=== PATIENT | female | born 1970 | race Caucasian/White ===

== ENCOUNTER 2019-08-28 08:32 | Outpatient (CLI) | payer BC, SELFPAY ==
--- NOTE | ~2019-08-28 | MM_ITS ---
EXAMINATION: MM screening [facility] BI w hedy HISTORY: Screening mammogram TECHNIQUE: Craniocaudal and mediolateral oblique 3-D tomosynthesis images were obtained and synthetic 2-D images were generated. CAD analysis was submitted and interpreted. COMPARISON: 07/20/2018, 02/23/2015 BREAST PARENCHYMAL COMPOSITION: There are scattered areas of fibroglandular density. FINDINGS: There is no evidence of suspicious mass, calcification, or architectural distortion to sugg est malignancy in either breast. There has been no suspicious interval change. IMPRESSION: 1. No mammographic evidence of malignancy. 2. Recommend routine screening mammography in one year. BI-RADS Category 1: Negative Reviewed, dictated and finalized at location A.
== END 2019-08-28 08:33 | disposition home or self-care (01) ==
LOC: ANHIMG 08:35
PROVIDERS: Visit Provider Obstetrics & Gynecology
DX: Z12.31 Encounter for screening mammogram for malignant neoplasm of breast (principal)
CPT/HCPCS: 77063; 77067

== ENCOUNTER 2019-11-27 00:10 | Outpatient (CLI) | payer BC, SELFPAY ==
[2019-11-27 15:58] LABS: SARS-CoV-2 RNA PCR Negative
== END 2019-11-27 00:11 | disposition home or self-care (01) ==
LOC: ANHCOVIDDT 00:10
PROVIDERS: Visit Provider Obstetrics & Gynecology
DX: Z01.818 Encounter for other preprocedural examination (principal); Z11.59 Encounter for screening for other viral diseases
CPT/HCPCS: 87635; C9803; U0003

== ENCOUNTER 2019-11-29 00:39 | Day surgery (SDC) | payer BC, SELFPAY ==
[2019-11-16 16:41] VITALS: BMI 36.0
[2019-11-29 06:20] VITALS: BP 124/78; PULSE 96; RESP 18; TEMP 36.2; O2SAT 97; BMI 36.7
[2019-11-29] MEDS: LACTATED RINGERS 1,000 ML 30 ML IV CONT (06:30)
--- NOTE | 2019-11-29 06:51 | WPDANESEPPF ---
Anes - Initial Pre Proc Eval Procedure: Operation Date: 11/29/19 07:30 Proposed Procedures p Hysteroscopy, Dilation and Curettage, Estephanie Ablation, Myosure with Endometrial Polyp Removal - Logan Pacheco MD Date/Time: 11/29/19 06:51 Surgeon: Logan Pacheco MD Pre Op Diagnosis: menorrhaghia, endometrial polyp Patient Data Age: 49 Gender: F Height: 5 ft 7 in Weight: 106.4 kg Last Vital Signs Temp 36.2 C L 11/29/19 06:20 Pulse 96 11/29/19 06:20 Resp 18 11/29/19 06:20 BP 124/78 11/29/19 06:20 Pulse Ox 97 11/29/19 06:20 Allergies Allergy/AdvReac Type Severity Reaction Status Date / Time No Known Allergies Allergy Unknown Uncoded 11/29/19 06:39 Home Medications Medication Instructions Recorded Confirmed Type cholecalciferol (vitamin D3) 100 4,000 unit PO DAILY 08/21/19 11/29/19 History mcg (4,000 unit) capsule melatonin 5 mg capsule 5 mg PO HS 08/21/19 11/29/19 History multivitamin 1 tablet PO DAILY 11/16/19 11/29/19 History Patient hx anesthesia problems: none Family hx anesthesia problems: none PMFSH Past Medical History Medical History Endometrial polyp Irregular periods Menorrhagia Surgical History Surgical History History of cholecystectomy Previous section x 2 Family History Family History Father Hypertension Family history of type 2 diabetes mellitus Social History Social History Smoking status: Never smoker Second hand tobacco smoke exposure: No Alcohol intake: current Anes - Eval Final PreProcedure Day of Procedure 11/29/19 06:51 Patient weight: obese Heart: regular rate and rhythm Lungs: clear to auscultation Airway: Mallampati scale class II Neurological: alert and oriented Last oral intake: >/= 8 hours ASA classification: II Emergent: no Anesthetic plan: proceed Anesthesia type and monitoring: general GIVS and standard monitoring Informed Consent: The patient's anesthetic plan and its attendant risks and benefits were discussed with the patient/family/POA. Questions were solicited and answers provided to the satisfaction of the patient/family/POA.
--- NOTE | 2019-11-29 07:04 | PM.IMHP ---
H&P: HPI History of Present Illness Chief complaint: menorrhaghia, endometrial polyp Narrative: Humera Garcia is a 49 year old female with history of menometrorrhagia. Vasectomy for control. She had an endometrial biopsy which showed an endometrial polyp. She was recommended to remove this. She was given option of endometrial ablation and desires endometrial ablation. Review of Systems Review of Systems: All systems reviewed & are unremarkable except as noted in HPI and below Constitutional: Constitutional: Reports no additional constitutional complaints ENT: Reports Normal hearing present Cardiovascular: Cardiovascular: Denies chest pain and Denies dyspnea Respiratory: Respiratory: Reports no additional respiratory complaints, Reports cough, Denies dyspnea and Reports other Gastrointestinal: Gastrointestinal: Denies abdominal pain Genitourinary: Genitourinary: Reports no additional female genitourinary complaints, Reports as per HPI, Denies dyspareunia, Denies vaginal discharge, Denies vaginal dryness, Denies vaginal odor and Denies vaginal pruritus Neurologic: Reports Normal hearing present Psychiatric: Psychiatric: Reports no additional psychiatric complaints Endocrine: Endocrine: Reports no additional endocrine complaints Hematologic/Lymphatic: Hematologic/Lymphatic: Reports no additional hematologic/lymphatic complaints [facility] Past Medical History Medical History Endometrial polyp Irregular periods Menorrhagia Surgical History Surgical History History of cholecystectomy Previous section x 2 Family History Family History Father Hypertension Family history of type 2 diabetes mellitus Social History Social History Smoking status: Never smoker Second hand tobacco smoke exposure: No Alcohol intake: current Meds Home Medications and Allergies Home Medications Medication Instructions Recorded Confirmed Type cholecalciferol (vitamin D3) 100 4,000 unit PO DAILY 08/21/19 11/29/19 History mcg (4,000 unit) capsule melatonin 5 mg capsule 5 mg PO HS 08/21/19 11/29/19 History multivitamin 1 tablet PO DAILY 11/16/19 11/29/19 History Allergies Allergy/AdvReac Type Severity Reaction Status Date / Time No Known Allergies Allergy Unknown Uncoded 11/29/19 06:39 Vital Signs Vital Signs - 24 hr 11/29/19 06:20 Temperature 97.2 F L Pulse Rate 96 Respiratory Rate 18 Blood Pressure 124/78 Pulse Oximetry 97 Exam Const: General: healthy appearing, no acute distress, alert and awake Nutritional Appearance: well nourished Orientation/consciousness: oriented to person, oriented to place, oriented to time and patient oriented x3 HENMT: Head: normal to inspection Ears: hearing grossly normal bilaterally Eyes: General: appearance normal, both eyes and all related structures Resp: Effort & Inspection: normal respiratory effort and other Auscultation: clear to auscultation bilaterally Cardio: Rate: regular rate Rhythm: regular rhythm GI: Inspection: normal to inspection GI Palp: Yes No hepatosplenomegaly present Rectal Exam: visual inspection normal : External Female Exam: normal external appearance and normal appearance of the urethra Speculum Exam - Vagina: normal appearance of the vagina Speculum Exam - Cervix: normal appearance of the cervix Bimanual exam- vagina & uterus: normal bimanual exam, uterine size normal, bladder normal to palpation, consistency normal, non-tender and no cervical motion tenderness Bimanual Exam- Adnexa, other: no masses, normal and No adnexal tenderness OB/external & speculum: external exam normal Skin: General skin exam: normal color Neuro: General: oriented to person, oriented to place, oriented to time and patient
[2019-11-29] MEDS: ceFAZolin 2 GM/D5W 50 ML 2 GM/50 ML BAG IVPB (07:28)
[2019-11-29] MEDS: KETOROLAC 30 MG/ML VIAL (*BKC) IV PUSH (08:03)
--- NOTE | 2019-11-29 08:12 | PM.PROC ---
Procedure Note - Detailed Date of procedure: 11/29/19 Pre-op diagnosis: menorrhaghia, endometrial polyp Menometrorrhagia. Post-op diagnosis: same Procedure performed: 1. Estephanie endometrial ablation 2. Hysteroscopy and dilation and currettage 3. Myosure excision of endometrial lesion Description of procedure: After informed consent was obtained patient was taken to the operating room and adequate IV sedation was administered. Attention was turned to the vagina. Speculum was inserted. Single-tooth tenaculum placed on the anterior lip of the cervix. 10cc of 1% lidocaine plain was injected at cervicovaginal interface at 2,3,8, 10 oclock. The uterus was sounded to 10 cm. The cervix was dilated to an 8 Kumar dilator. The cervical length was 4cm. The hysteroscope was inserted into the cavity. The findings were a small polyp looking lesion to the left of lower uterine segment. The hysteroscope was removed. The myosure biopsy was inserted and the lesion was removed. A sharp currettage was then performed. The Estephanie ablation instrument was inserted into the cavity. Cavity assessment was performed and a leak at os was noted. A tenaculum was placed at the posterior cervix. The instrument was inserted into cavity and cavity assessment performed and intact. The ablation was enabled. After 120 seconds the Estephanie stopped. The ablation instrument was removed. The hysteroscope was inserted and there was noted to be good eschar with the cavity. The hysteroscope was removed the single-tooth tenaculums were removed and hemostasis was noted at the tenaculum site. Sponge count correct. The patient was taken to recovery in stable condition. Patient tolerated procedure well. Anesthesia: MAC and local Surgeon: Logan Pacheco MD Estimated blood loss (mL): 5 Drains: No Packing: No Pathology: yes (endometrial currettings with myosure shavings) Complications: No immediate complications Condition: stable Disposition: PACU Findings: Uterine cavity sound to 10cm, cervical length 4 cm, small polypoid or remnant of polyp at lower left uterine segment, proliferative endometrium, good eschar noted of lining post procedure.
[2019-11-29 08:16] VITALS: BP 120/73; PULSE 80; RESP 18
--- NOTE | 2019-11-29 08:30 | P.DS_ITS ---
DS: Admitting Diagnosis Admitting Diagnosis Admitting Diagnosis: Menometrorrhagia. Endometrial polyp. DS: Discharge Diagnosis Discharge Diagnosis (1) Menorrhagia: Code(s): N92.0 - Excessive and frequent menstruation with regular cycle Status: Acute Assessment and Plan: Estephanie endometrial ablation performed. Hysteroscopy and dilation and currettage performed. (2) Endometrial polyp: Code(s): N84.0 - Polyp of corpus uteri Status: Acute Assessment and Plan: Myosure excision. DS: Summary Time Spent with Patient Time attestation: Total time spent providing and/or coordinating discharge services: DS: Data Data Completed and Pending Pending studies at discharge: Pending at discharge 11/29/19 07:54 Surgical [PTH] Routine Discharge Plan Discharge Patient Disposition: Home, Self-Care Discharge Instructions: Pelvic rest for two weeks. Call for fever, saturating more than a pad an hour. May have discharge for up to six weeks. May take over the counter Ibuprofen or Tylenol for pain. Follow directions on bottle. Follow-up/Referrals: Logan Pacheco MD [Physician] - 4 Weeks Discharge Medications: No Action melatonin 5 mg capsule 5 mg PO HS RF: 0 cholecalciferol (vitamin D3) 4,000 unit capsule 4,000 unit PO DAILY RF: 0 multivitamin Tablet 1 tablet PO DAILY RF: 0 Primary Care Provider: PHYSICIAN,HELICOPTER DISPATCHER Attending physician on admission: Logan Pacheco
[2019-11-29 08:45] VITALS: BP 120/71; PULSE 76; RESP 12
[2019-11-29 09:15] VITALS: BP 111/68; PULSE 68; RESP 16
== END 2019-11-29 09:31 | disposition home or self-care (01) ==
PROVIDERS: Visit Provider Obstetrics & Gynecology
PROC: 0U5B8ZZ Destruction of Endometrium, Via Natural or Artificial Opening Endoscopic (ICD-10-PCS; CPT 58563; principal; 2019-11-29 07:30)
DX: N92.0 Excessive and frequent menstruation with regular cycle (principal); N84.0 Polyp of corpus uteri; E66.9 Obesity, unspecified; Z68.36 Body mass index [BMI] 36.0-36.9, adult
CPT/HCPCS: 58563; 88305; A9270; J0131; J0690; J1885; J2250; J2704; J7030; J7120

== ENCOUNTER 2020-05-11 08:37 | Emergency (ER) | payer BC, SELFPAY ==
[2020-05-11 08:42] VITALS: BP 134/67; PULSE 85; RESP 12; TEMP 36.3; O2SAT 98
--- NOTE | 2020-05-11 09:01 | ED.EYEPROB ---
HPI - Eye Problem General Chief complaint: Eye Problems Stated complaint: EYE SWELLING Source: patient and RN notes reviewed Limitations: no limitations History of Present Illness HPI Narrative: The patient, who wears contact lenses, presents with left upper lid redness. Patient states she has a shorter 1 to 2-day history of left upper lid redness. No pinkeye, fever, sneezing/wheezing, discharge, photophobia, foreign body. Symptoms are mild, slightly worse with blinking, somewhat more localized to nasal aspect of upper lid Related Data Home Medications Medication Instructions Recorded Confirmed cholecalciferol (vitamin D3) 100 4,000 unit PO DAILY 08/21/19 11/29/19 mcg (4,000 unit) capsule melatonin 5 mg capsule 5 mg PO HS 08/21/19 11/29/19 multivitamin 1 tablet PO DAILY 11/16/19 11/29/19 Allergies Allergy/AdvReac Type Severity Reaction Status Date / Time No Known Allergies Allergy Unknown Uncoded 11/29/19 06:39 Review of Systems Review of Systems: Narrative: General/Constitutional: No weight loss,fever Eyes: REPORTS lid redness,no discharge Ears/Nose/Throat: No: Epistaxis,ear discharge Respiratory: Denies: Hemoptysis Gastrointestinal: No Vomiting, Bleeding-rectal Skin: No Lumps, eruption Neurologic: No Focal Weakness,Sz Hematologic: Denies: Petechiae/Purpura Psychiatric: No: Suicida ideationl All Other Systems: Reviewed and Negative PMFSH Past Medical History Medical History (Updated 05/11/20 @ 09:06 by Williams Montemayor MD) Endometrial polyp Irregular periods Menorrhagia Surgical History Surgical History History of cholecystectomy Previous section x 2 Family History Family History Father Hypertension Family history of type 2 diabetes mellitus Social History Social History Smoking status: Never smoker Second hand tobacco smoke exposure: No Alcohol intake: current Comments At time of signature, agree with nursing past medical, surgical, social and family history. There is no relevant family history pertinent to the presenting complaint Exam Narrative: Exam Narrative: General Appearance: Well appearing, Well nourished, No distress EYE: PERRLA, [id number] : Early/mild left upper lid redness from stye, EOMI , Lens normal, Normal corneas , anterior chamber deep, Conjunctiva injection Ears: External ear normal, Auditory canal normal Nose: Normal nose, Nares clear Mouth/Throat: Normal appearing, Normal lips Supple, Respiratory: Airway patent, No respiratory distress Skin: Warm, Dry Neurological: A&O x3,, Normal affect Course Vital Signs Vital signs: Vital Signs Temperature 97.3 F L 05/11/20 08:42 Pulse Rate 85 05/11/20 08:42 Respiratory Rate 12 05/11/20 08:42 Blood Pressure 134/67 05/11/20 08:42 Pulse Oximetry 98 05/11/20 08:42 Temperature 97.3 F L 05/11/20 08:42 Pulse Rate 85 05/11/20 08:42 Respiratory Rate 12 05/11/20 08:42 Blood Pressure 134/67 05/11/20 08:42 Pulse Oximetry 98 05/11/20 08:42 Discharge Plan Discharge Clinical Impression: Hordeolum externum of left upper eyelid Patient Disposition: Home, Self-Care Condition: Stable Instructions: Navin (ED) Additional Instructions: See eye doctor if not improved, discontinue contact lenses till improved over a week. Also try Ras's no tear [or other brand] shampoo for eyelid scrubs/washing Prescriptions: New sulfamethoxazole-trimethoprim [Bactrim DS] 800-160 mg tablet 1 tablet PO Q12H Qty: 6 RF: 0 sulfacetamide sodium [Bleph-10] 10 % drops 2 drp LEFTEYE Q3H Qty: 5 RF: 0 No Action melatonin 5 mg capsule 5 mg PO HS RF: 0 cholecalciferol (vitamin D3) 4,000 unit capsule 4,000 unit PO DAILY RF: 0 multivitamin Tablet 1 tablet PO DAILY RF: 0
== END 2020-05-11 09:13 | disposition home or self-care (01) ==
PROVIDERS: Emergency Provider Emergency Medicine; PCP Family Medicine
DX: H00.014 Hordeolum externum left upper eyelid (principal)
CPT/HCPCS: 99213; G0463

== ENCOUNTER 2020-11-06 08:51 | Outpatient (CLI) | payer BC, SELFPAY ==
--- NOTE | ~2020-11-06 | MM_ITS ---
EXAMINATION: MM screening [facility] BI w hedy HISTORY: Screening TECHNIQUE: Craniocaudal and mediolateral oblique 3-D tomosynthesis images were obtained and synthetic 2-D images were generated. CAD analysis was submitted and interpreted. COMPARISON: Comparison to multiple prior studies sequentially, with oldest reviewed study dated 10/2014. BREAST PARENCHYMAL COMPOSITION: There are scattered areas of fibroglandular density. FINDINGS: There is no evidence of suspicious mass, calcification, or architectural distortion to sugg est malignancy in either breast. There has been no suspicious interval change. IMPRESSION: 1. No mammographic evidence of malignancy. 2. Recommend routine screening mammography in one year. BI-RADS Category 1: Negative Reviewed, dictated and finalized at location A.
== END 2020-11-06 08:52 | disposition home or self-care (01) ==
LOC: ANHIMG 08:53
PROVIDERS: PCP Family Medicine; Visit Provider Obstetrics & Gynecology
DX: Z12.31 Encounter for screening mammogram for malignant neoplasm of breast (principal)
CPT/HCPCS: 77063; 77067

== ENCOUNTER 2021-12-10 14:47 | Outpatient (CLI) | payer BC, SELFPAY ==
--- NOTE | ~2021-12-10 | MM_ITS ---
EXAMINATION: MM screening [facility] BI w hedy HISTORY: Screening mammogram TECHNIQUE: Craniocaudal and mediolateral oblique 3-D tomosynthesis images were obtained and synthetic 2-D images were generated. CAD analysis was submitted and interpreted. COMPARISON: 11/06/2020, 08/28/2019, 07/20/2018 bilateral screening mammogram examinations BREAST PARENCHYMAL COMPOSITION: FINDINGS: There is no evidence of suspicious mass, calcification, or architectural distortion to sugg est malignancy in either breast. There has been no suspicious interval change. IMPRESSION: 1. No mammographic evidence of malignancy. 2. Recommend routine screening mammography in one year. BI-RADS Category 1: Negative Reviewed, dictated and finalized at location A.
== END 2021-12-10 14:48 | disposition home or self-care (01) ==
PROVIDERS: PCP Family Medicine; Visit Provider Obstetrics & Gynecology
DX: Z12.31 Encounter for screening mammogram for malignant neoplasm of breast (principal)
CPT/HCPCS: 77063; 77067

== ENCOUNTER 2024-09-11 07:23 | Outpatient (CLI) | payer BC, SELFPAY ==
--- NOTE | ~2024-09-11 | MM_ITS ---
EXAMINATION: MM screening yoav BI w hedy HISTORY: Screening TECHNIQUE: Craniocaudal and mediolateral oblique 3-D tomosynthesis images were obtained and synthetic 2-D images were generated. CAD analysis was submitted and interpreted. COMPARISON: 12/10/2021 and dating back to 07/20/2018 BREAST PARENCHYMAL COMPOSITION: There are scattered areas of fibroglandular density. FINDINGS: Interval development of a 7 mm asymmetry within the upper outer left breast approximately 7 cm from the nipple for which spot compression followed by a focused ultrasound is recommended. Otherwise stable parenchymal pattern without suspicious microcalcifications or architectural distorti on. IMPRESSION: Interval development of a 7 mm asymmetry within the upper outer left breast approximately 7 cm from t he nipple for which spot compression followed by a focused ultrasound is recommended. BI-RADS Category 0: Incomplete: Needs additional imaging evaluation. Reviewed, dictated and finalized at location A. IMPRESSION: Interval development of a 7 mm asymmetry within the upper outer left breast nola roximately 7 cm from the nipple for which spot compression followed by a focuse d ultrasound is recommended. BI-RADS Category 0: Incomplete: Needs additional imaging evaluation.
--- OUTSIDE RECORDS SUMMARY | 2024-09-11 07:27 | XMS_ITS | Encounter Summary ---
Author Organization [facility] Address [address] [place] [address] Care Team Providers Care Nut Sorter Operator Name Role Phone Donnell Patterson MD Primary Care Provider [phone] Encounter Details Date Type Department Care Team (Late Contact Info) Description 11/09/2023 MyChart Message Enc [address] [id number] Donnell Patterson MD [address] [place] [address] [place] Social History Tobacco Use Types Packs/Day Years Used Date Smoking Tobacco: Never Passive Smoke Exposure: Never Smokeless Tobacco: Never Comments:Counseled by Dr. Sara vanegas. 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 Gender Identity Female 10/26/2023 7:57 AM CDT Sexual Orientation Straight 10/26/2023 7: 57 AM CDT documented as of this encounter Plan of Treatment Upcoming Encounters Date Type Department Care Team (Late st Contact Info) Description 10/24/2024 7:40 AM CDT Office Visit [address] [place] [address] Donnell Patterson MD [address] [address] documented as of this encounter Visit Diagnoses Not on filedocumented in this encounter Additional Health Concerns Assessment Noted Time PHQ-9 Depression Total Score: 5 10/25/19 24 3:33 PM CDT documented as of this encounter Care Teams Nut Sorter Operator Relationship Specialty Start Date End Date Donnell Patterson MD [address] [address] PCP - General 10/24/23 documented as of this encounter
--- OUTSIDE RECORDS SUMMARY | 2024-09-11 07:27 | XMS_ITS | Encounter Summary ---
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 Gender Identity Female 10/26/2023 7:57 AM CDT Sexual Orientation Straight 10/26/2023 7: 57 AM CDT documented as of this encounter Plan of Treatment Upcoming Encounters Date Type Department Care Team (Late st Contact Info) Description 10/24/2024 7:40 AM CDT Office Visit [address] [place] [address] Donnell Patterson MD [address] [address] documented as of this encounter Visit Diagnoses Not on filedocumented in this encounter Additional Health Concerns Assessment Noted Time PHQ-9 Depression Total Score: 5 10/25/19 24 3:33 PM CDT documented as of this encounter Care Teams Electrical Design Technician Relationship Specialty Start Date End Date Donnell Patterson MD [address] [address] PCP - General 10/24/23 documented as of this encounter
--- OUTSIDE RECORDS SUMMARY | 2024-09-11 07:27 | XMS_ITS | Clinical Summary ---
Author Organization [facility] Address [address] [place] [address] Care Team Providers Care Eyelet Operator Name Role Phone Unavailable Primary Care Provider Unavailabl e Allergies No known active allergies Medications Flowflex COVID-19 Ag Home Test kit FOLLOW INSTRUCTIONS INCLUDED WITH THE PACKAGE. 2 Active Active Problems No known active problems Social History Tobacco Use Types Packs/Day Years Used Date Smoking Tobacco: Never Assessed Comments Unknown Sex and Gender Information Value Date Recorded Sex Assigned at Not on file Legal Sex Female 9:04 PM PDT Gender Identity Not on file Sexual Orientation Not on file Plan of Treatment Health Maintenance Due Date Last Done Comments Periodontal Maintenance 1970 Dental Oral Exam 11/26/2021 05/27/2021, 03/22/2020 Dental X-Ray: Bitewings 11/26/2021 05/27/2021 Scaling and Root Planing 04/05/2022 03/22/2020, 07/2019 Dental X-Ray: Full Mouth 11/12/2023 11/10/2020, 07/2019 Dental X-Ray: Panoramic 05/29/2024 05/28/2021, 02/11 Meningococcal B Vaccine Aged Out No l onger eligible based on patient's age to complete this topic Procedures Procedure Name Priority Date/Time Associated Diagnosis Comments PERIODIC ORAL EVALUATION - ESTABLISHED PATIENT Routine 05/27/2021 5:30 PM GLASS INSTALLER TECHNICIAN LL PERIODONTAL SCALING AND ROOT PLANING - ONE TO THREE TEETH PER QUADRANT Routine 03/22/2020 2:00 AM CDT INTRAORAL - COMPREHENSIVE SERIES OF RADIOGRAPHIC IMAGES Routine 03/22/2020 2:00 AM CDT PANORAMIC RADIOGRAPHIC IMAGE Routine 02/12/2020 2:00 AM CDT from Last 3 Months or Most Recently Relevant to Health Maintenance Insurance [facility]
--- OUTSIDE RECORDS SUMMARY | 2024-09-11 07:27 | XMS_ITS | Encounter Summary ---
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 Gender Identity Female 10/26/2023 7:57 AM CDT Sexual Orientation Straight 10/26/2023 7: 57 AM CDT documented as of this encounter Plan of Treatment Upcoming Encounters Date Type Department Care Team (Late st Contact Info) Description 10/24/2024 7:40 AM CDT Office Visit [address] [place], [place] [phone] Donnell Patterson MD [address] [place] [address] [address] [place] [address] documented as of this encounter Visit Diagnoses Not on filedocumented in this encounter Additional Health Concerns Assessment Noted Time PHQ-9 Depression Total Score: 5 10/25/19 24 3:33 PM CDT documented as of this encounter Care Teams Rivet Flunky Relationship Specialty Start Date End Date Donnell Patterson MD [address] [address] PCP - General 10/24/23 documented as of this encounter
--- OUTSIDE RECORDS SUMMARY | 2024-09-11 07:27 | XMS_ITS | Encounter Summary ---
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 Gender Identity Female 10/26/2023 7:57 AM CDT Sexual Orientation Straight 10/26/2023 7: 57 AM CDT documented as of this encounter Plan of Treatment Upcoming Encounters Date Type Department Care Team (Late st Contact Info) Description 10/24/2024 7:40 AM CDT Office Visit [address] [place], [place] [phone] Donnell Patterson MD [address] [place] [address] 157 [place] [address] documented as of this encounter Visit Diagnoses Not on filedocumented in this encounter Additional Health Concerns Assessment Noted Time PHQ-9 Depression Total Score: 5 10/25/19 24 3:33 PM CDT documented as of this encounter Care Teams Shoe Parts Caser Relationship Specialty Start Date End Date Donnell Patterson MD [address] [address] PCP - General 10/24/23 documented as of this encounter
--- OUTSIDE RECORDS SUMMARY | 2024-09-11 07:27 | XMS_ITS | Clinical Summary ---
Author Organization [facility] Address [address] [place] [address] Care Team Providers Care Concession Manager Name Role Phone Donnell [place] MD Primary Care Provider [phone] Allergies Active Allergy Reactions Criticality Noted Date Comments Seasonal Eyes Water & Itch,He adache,Runny Nose,Sneezing 10/25/2023 Medications Multiple Vitamins-Minerals (CENTRUM MINIS ADULTS 50+ OR) Activ e Cholecalciferol (VITAMIN D) 50 MCG (1999) Cap Active loratadine (CLARITIN) 10 MG tablet Take 1 tablet (10 mg total) by mouth daily. Active levothyroxine (SYNTHROID) 25 MCG tabletIndications:A cquired hypothyroidism Take 1 tablet (25 mcg total) by mouth every morning. 90 tablet 1 4 Active Calcium 200 MG Tab A ctive metFORMIN (GLUCOPHAGE) 500 MG tabletIndications:T ype 2 diabetes mellitus with hyperglycemia, with long-term current use of insulin ([facility]/HCC HHS/HCC) Take 1 tablet (500 mg total) by mouth daily with breakfast. 90 tablet 1 4 Active atorvastatin (LIPITOR) 20 MG tabletIndications:H yperlipidemia associated with type 2 diabetes mellitus (CMS/HCC HHS/HCC) Take 1 tablet (20 mg total) by mouth nightly at bedtime. at bedtime 90 tablet 4 Active PARoxetine (PAXIL) 30 MG tabletIndications:G AD (generalized anxiety disorder),Vasomotor flushing TAKE 1/2 TABLET BY MOUTH NIGHTLY AT BEDTIME. 45 tablet 1 4 Active RYBELSUS 14 MG tabletIndications:T ype 2 diabetes mellitus with hyperglycemia, with long-term current use of insulin ([facility]) TAKE 1 TABLET BY MOUTH EVERY DAY FOR DIABETES 30 tablet 2 5 Active Active Problems Problem Noted Date Diagnosed Date Hx laparoscopic cholecystectomy 10/25/2023 Previous section 10/25/2023 Anxiety Encounters Date Type Department Care Team Description 07/18/2024 Telephone [facility] - [address] [place] [address] Donnell [place] MD Other from Last 3 Months Immunizations Name Administration Dates Next Due Fluzone (IIV3, Trivalent, 0. 5 ML Prefilled Syringe) 04/28/2024 Influenza (Generic) 04/12/2021,05/16/2017,2014 Influenza Adult (Generic) 04/04/2023,03/2022,04/01/2020,2015 Pneumococcal (Prevnar 20) 04/28/2024 Shingrix 12/20/2021,10/04/2021 Tdap (Adacel) 12/06/2023 Family History Medical History Relation Comments Diabetes Father Hypertension Father Relation Status Comments Father Social History Tobacco Use Types Packs/Day Years Used Date Smoking Tobacco: Never Passive Smoke Exposure: Never Smokeless Tobacco: Never Tobacco Cessation:Counseling Given: Yes Comments:Counseled by Dr. [place]. Alcohol Use Standard Drinks/Week Comments Never 0 (1 standard drink = 0.6 oz pur e alcohol) PHQ-2 Answer Date Recorded Patient Health Questionnaire-2 Score 1 10/25/2023 Comments Unknown Sex and Gender Information Value Date Recorded Sex Assigned at Female 10/26/2023 7:57 AM CDT Legal Sex Female 2:03 PM NAIL STICKER Gender Identity Female 10/26/2023 7:57 AM CDT Sexual Orientation Straight 10/26/2023 7: 57 AM CDT Last Filed Vital Signs Vital Sign Reading Time Taken Comments Blood Pressure 123/75 04/28/2024 12:38 PM NAIL STICKER Pulse 69 04/28/2024 12:38 PM NAIL STICKER Temperature 36.3 C (97.3 F) 04/28/2024 12:38 PM NAIL STICKER Respiratory Rate 18 04/28/2024 12:38 PM NAIL STICKER Oxygen Saturation 99% 04/28/2024 12:38 PM NAIL STICKER Inhaled Oxygen Concentration - - Weight 96.7 kg (213 lb 3.2 oz) 04/28/2024 12:38 PM NAIL STICKER Height 170.2 cm (5' 7 ) 04/28/2024 12:38 PM NAIL STICKER Body Mass Index 33.39 04/28/2024 12:38 PM NAIL STICKER Plan of Treatment Upcoming Encounters Date Type Department Care Team (Late st Contact Info) Description 10/24/2024 7:40 AM CDT Office Visit [facility] [place] [address] [place] [address] [address] [place], [place] [id number] Donnell [place] MD [address] [facility] [address] [place], [place] [id number] Health Maintenance Due Date Last Done Comments Cervical Cancer Screening Pap Smear (Age 30 to 64) Every 3 Years 1970 Diabetes: Retinopathy Eye Exam 1988 Hepatitis B Vaccines (1 of 3 - 19+ 3-dose series) 1989 Mammogram Screening 12/11/2023 12/10/2021, COVID-19 Vaccine ( season) 2024 04/04/2023, 04/30/2022, 09/26/2021, Additional history exists PHQ-2 (Physician [place]) 06/21/2024 10/25/2023 Hemoglobin A1C 09/26/2024 03/28/2024, 11/01/2023 Annual Physical 10/24/2024 10/25/2023 Kidney Health Evaluation 10/24/2024 10/25/2023 Lipid Panel 05/29/2025 05/29/2024, 11/01/2023 Cervical Cancer Screening Pap with HPV Testing (Age 30 to 64) Every 5 Years 09/09/2026 09/09/2021 Cervical Cancer Screening with HPV 09/09/2026 Colorectal Cancer Screening FIT-DNA (3 Years) 01/20/2027 01/21/2024, 01/21/2024 DTaP, Tdap and Td Vaccines (2 - Td or Tdap) 12/05/2033 12/06/2023 Zoster Vaccines Completed 12/20/2021, 10/04/2021 Hepatitis C Completed 11/01/2023 Influenza Adult Completed 04/28/2024, 03/21, 04/30/2022, Additional history exists Pneumococcal Vaccine: Pediatrics (0 to 5 Years) and At-Risk Patients (6 to 64 Years) Completed 04/28/2024 Meningococcal B Vaccine Aged Out No l onger eligible based on patient's age to complete this topic Meningococcal Vaccine Aged Out No ara dedira eligible based on patient's age to complete this topic RSV Immunizations Under 20 Months Aged Out No longer eligible based on patient's age to complete this topic Procedures Procedure Name Priority Date/Time Associated Diagnosis Comments LIPID PANEL Routine 05/29/2024 7:32 AM NAIL STICKER Drug therapy HEMOGLOBIN, GLYCOSYLATED Routine 03/28/2024 7:59 AM CDT Type 2 diabetes mellitus with hyperglycemia, with long-term current use of insulin ([facility]) COLOGUARD (EXACT SCIENCE) Routine 01/21/2024 1:00 PM CDT Screen for colon cancer HEPATITIS C ANTIBODY Routine 11/01/2023 7:36 AM CDT Annual physical exam Establishing care with new doctor, encounter for General medical exam Encounter for hepatitis C screening test for low risk patient MG SCREENING W THO KEAGAN DIGI Routine 12/10/2021 12:00 AM CDT Encounter for screening mammogram for malignant neoplasm of breast OUTSIDE CYTOPATH CERV/VAG INTERPRET (PAP) 09/09/2021 from Last 3 Months or Most Recently Relevant to Health Maintenance Results * (ABNORMAL) LIPID PANEL (05/29/2024 7:32 AM NAIL STICKER) CHOLESTEROL 133 <200 MG/DL 05/29/2024 3:10 PM NAIL STICKER [facility] TRIGLYCERIDES 145 <150 MG/DL 05/29/2024 3:10 PM NAIL STICKER [facility] HDL 37(L) >40 MG/DL 05/29/2024 3:10 PM NAIL STICKER [facility] LDL-C 67 <100 MG/DL 05/29/2024 3:10 PM NAIL STICKER [facility] VLDL CALCULATION 29(H) 5 - 28 MG/DL 05/29/2024 3:10 PM NAIL STICKER [facility] CHOL/HDL RATIO 3.6 0.0 - 4.0 05/29/2024 3:10 PM NAIL STICKER [facility] LDL/HDL 1.8 0.41 - 2.13 05/29/2024 3:10 PM NAIL STICKER [facility] NON HDL CHOLESTEROL 96 <140 MG/DL 05/29/2024 3:10 PM NAIL STICKER [facility] 05/29/2024 7:32 AM NAIL STICKER Donnell [place] MD LABORATORY Final Result Performing Organization Address City/[facility]/ZIP Co de Phone Number [place] [id number] [place] [address], [place] [phone] * HEMOGLOBIN, GLYCOSYLATED (03/28/2024 7:59 AM CDT) [facility] HGB A1C 5.0 4.5 - 6.2 % 03/28/2024 3:09 PM CDT [facility] ESTIMATED AVG GLUCOSE 97 74 - 106 MG/DL 03/28/2024 3:09 PM CDT [facility] 03/28/2024 7:59 AM CDT Erica Pa NP LABORATORY Final Resul t Performing Organization Address City/[facility]/ZIP Co de Phone Number [address] [address], [place] [phone] * COLOGUARD ([employer] SCIENCE) (01/21/2024 1:00 PM CDT) COLOGUARD RESULT Negative Negative [facility] [employer] (CLIA #:[id number]) Comment: NEGATIVE TEST RESULT. A negative Cologuard result indicates a low likelihood that a colorectal cancer (CRC) or advanced adenoma (adenomatous polyps with more advanced pre-malignant features) is present. The chance that a person with a negative Cologuard test has a colorectal cancer is less than 1 in 1500 (negative predictive value >99.9%) or has an advanced adenoma is less than 5.3% (negative predictive value 94.7%). These data are based on a prospective cross-sectional study of 10,000 individuals at average risk for colorectal cancer who were screened with both Cologuard and colonoscopy. (Adriel Chavez. et al, N Engl J Med 2014;370(14):4339-0209) The normal value (reference range) for this assay is negative. COLOGUARD RE-SCREENING RECOMMENDATION: Periodic colorectal cancer screening is an important part of preventive healthcare for asymptomatic individuals at average risk for colorectal cancer. Following a negative Cologuard result, the [place] [employer] Society and U.S. Multi-Society Task Force screening guidelines recommend a Cologuard re-screening interval of 3 years. References: [place] [employer] Guideline for Colorectal Cancer Screening: https://www.cancer.org/cancer/staia-mttfkb-ffsmnm/ggywulzed-rlmwveecw-mmecgtc/ac s-rec ommendations.html.; Percy HORN, Naina TREVINO, Gabino GlezK, Colorectal Cancer Screening: Recommendations for Physicians and Patients from the U.S. Multi-Society Task Force on Colorectal Cancer Screening , Am J Gastroenterology 2017; 112:5736-1170. TEST DESCRIPTION: Composite algorithmic analysis of stool DNA-biomarkers with hemoglobin immunoassay. Quantitative values of individual biomarkers are not reportable and are not associated with individual biomarker result reference ranges. Cologuard is intended for colorectal cancer screening of adults of either sex, 45 years or older, who are at average-risk for colorectal cancer (CRC). Cologuard has been approved for use by the U.S. FDA. The performance of Cologuard was established in a cross sectional study of average-risk adults aged 50-84. Cologuard performance in patients ages 45 to 49 years was estimated by sub-group analysis of near-age groups. Colonoscopies performed for a positive result may find as the most clinically significant lesion: colorectal cancer [4.0%], advanced adenoma (including sessile serrated polyps greater than or equal to 1cm diameter) [20%] or non- advanced adenoma [31%]; or no colorectal neoplasia [45%]. These estimates are derived from a prospective cross-sectional screening study of 10,000 individuals at average risk for colorectal cancer who were screened with both Cologuard and colonoscopy. (Adriel Hernandes et al, N Engl J Med 2014;370(14):7073-4563.) Cologuard may produce a false negative or false positive result (no colorectal cancer or precancerous polyp present at colonoscopy follow up). A negative Cologuard test result does not guarantee the absence of CRC or advanced adenoma (pre-cancer). The current Cologuard screening interval is every 3 years. ([place] [employer] and U.S. Multi-Society Task Force). Cologuard performance data in a 10,000 patient pivotal study using colonoscopy as the reference method can be accessed at the following location: www.[employer].com/results. Additional description of the Cologuard test process, warnings and precautions can be found at www.cologCellCeuticals Skin Carerd.com. STOOL STOOL SPECIMEN / Unknown 01/21/2024 1:00 PM CDT 01/22/2024 6:24 AM CDT Donnell [place] MD BODY FLUIDS AND STOOLS ORDERABLE S Final Result [facility] ([facility]) [address] [place] [address], [employer] (CLIA #:[id number]) [address] [place] [address] * HEPATITIS C ANTIBODY (11/01/2023 7:36 AM CDT) HEPATITIS C AB NON-REACTI VE NON-REACT TAMIKA 11/01/2023 8:27 PM CDT [facility] Comment: ANTIBODIES TO HCV NOT DETECTED. DOES NOT EXCLUDE THE POSSIBILITY OF EXPOSURE TO HCV. 11/01/2023 7:36 AM CDT Donnell [place] MD LABORATORY Final Result [facility] [address] [place] [address], [id number] * MG SCREENING W THO KEAGAN DIGI (12/10/2021 12:00 AM CDT) Anatomical Region Laterality Modality Breast Bilateral Mammography 12/10/2021 us Donnell [place] MD MAMMO Final Result * PAP SMEAR WITH HPV (09/09/2021) 09/09/2021 [facility] Scanned SCANNING Final Resu lt from Last 3 Months or Most Recently Relevant to Health Maintenance [place] [address] [place] [address] Care Teams Concession Manager Relationship Specialty Start Date End Date Donnell [place] MD [address] [facility] [address] [place] [id number] PCP - General 10/24/23
--- OUTSIDE RECORDS SUMMARY | 2024-09-11 07:27 | XMS_ITS | Encounter Summary ---
Author Organization [facility] [place] [address] [place] [address] Care Team Providers Care Grooving Lathe Tender Name Role Phone Unavailable Primary Care Provider Unavailabl e Prior Encounters Date Type Department Care Team Description 03/05/2022 3:00 PM CDT Office Visit [facility] [address] [place] [address] Yandel Yuen DDS 05/27/2021 Travel 05/27/2021 5:30 PM APPLICATIONS SPECIALIST Office Visit [facility] [address] [place] [phone] Trisha Shields, RIANA 07/10/2019 Converted CPS Chart Documents [facility] [address] [place] [phone] <No scans attached> 07/10/2019 Converted 13x Documents [facility] [address] [place] [phone] <No scans attached> Plan of Treatment Not on file Procedures Procedure Name Priority Date/Time Associated Diagnosis Comments SINGLE X-RAY Routine 03/05/2022 3:00 PM CDT BITEWING - SINGLE RADIOGRAPHIC IMAGE Routine 03/05/2022 3:00 PM CDT PLAN VISIT FEE Routine 03/05/2022 3:00 PM CDT LIMITED ORAL EVALUATION - PROBLEM FOCUSED Routine 03/05/2022 3:00 PM CDT BITEWINGS - FOUR RADIOGRAPHIC IMAGES Routine 05/27/2021 5:30 PM APPLICATIONS SPECIALIST SINGLE X-RAY Routine 05/27/2021 5:30 PM APPLICATIONS SPECIALIST PERIODIC ORAL EVALUATION - ESTABLISHED PATIENT Routine 05/27/2021 5:30 PM APPLICATIONS SPECIALIST 4 MOD COMPOSITE FILLING Routine 10/23/19 21 2:00 AM CDT 5 DO COMPOSITE FILLING Routine 1 2:00 AM CDT 9 ML COMPOSITE FILLING Routine 1 2:00 AM CDT 8 ML COMPOSITE FILLING Routine 1 2:00 AM CDT 19 MOB AMALGAM 3 SURFACE Routine 020 2:00 AM CDT 15 LO AMALGAM 2 SURFACE Routine 03/22/20 20 2:00 AM CDT 14 LO AMALGAM 2 SURFACE Routine 03/22/20 20 2:00 AM CDT 3 LO AMALGAM 2 SURFACE Routine 0 2:00 AM CDT 2 LO AMALGAM 2 SURFACE Routine 0 2:00 AM CDT 31 O AMALGAM 1 SURFACE Routine 0 2:00 AM CDT 30 O AMALGAM 1 SURFACE Routine 0 2:00 AM CDT 20 O AMALGAM 1 SURFACE Routine 0 2:00 AM CDT 18 O AMALGAM 1 SURFACE Routine 0 2:00 AM CDT 32 EXTRACTION, ERUPTED TOOTH OR EXPOSED ROOT (ELEVATION AND/OR FORCEPS REMOVAL) Routine 03/22/2020 2:00 AM CDT 16 EXTRACTION, ERUPTED TOOTH OR EXPOSED ROOT (ELEVATION AND/OR FORCEPS REMOVAL) Routine 03/22/2020 2:00 AM CDT 1 EXTRACTION, ERUPTED TOOTH OR EXPOSED ROOT (ELEVATION AND/OR FORCEPS REMOVAL) Routine 03/22/2020 2:00 AM CDT LL PERIODONTAL SCALING AND ROOT PLANING - FOUR OR MORE TEETH PER QUADRANT Routine 03/22/2020 2:00 AM CDT ORAL HYGIENE INSTRUCTIONS Routine 2019 2:00 AM CDT LL PERIODONTAL SCALING AND ROOT PLANING - ONE TO THREE TEETH PER QUADRANT Routine 03/22/2020 2:00 AM CDT TOPICAL APPLICATION OF FLUORIDE VARNISH Routine 03/22/2020 2:00 AM CDT PROPHYLAXIS - ADULT Routine 03/22/2020 2 :00 AM CDT COMPREHENSIVE ORAL EVALUATION - NEW OR ESTABLISHED PATIENT Routine 03/22/2020 2:00 AM CDT INTRAORAL - COMPREHENSIVE SERIES OF RADIOGRAPHIC IMAGES Routine 03/22/2020 2:00 AM CDT OFFICE VISIT FOR OBSERVATION (DURING REGULARLY SCHEDULED HOURS) - NO OTHER SERVICES PERFORMED Routine 03/22/2020 2:00 AM CDT INTRAORAL PHOTO Routine 03/22/2020 2:00 AM CDT INTRAORAL PHOTO Routine 03/22/2020 2:00 AM CDT INTRAORAL PHOTO Routine 03/22/2020 2:00 AM CDT INTRAORAL PHOTO Routine 03/22/2020 2:00 AM CDT PANORAMIC RADIOGRAPHIC IMAGE Routine 02/12/2020 2:00 AM CDT SINGLE X-RAY Routine 02/12/2020 2:00 AM CDT 11 LIMITED ORAL EVALUATION - PROBLEM FOCUSED Routine 02/12/2020 2:00 AM CDT Visit Diagnoses Not on file [facility]
== END 2024-09-11 07:24 | disposition home or self-care (01) ==
LOC: ANHIMG 07:25
PROVIDERS: PCP Family Medicine; Visit Provider Obstetrics & Gynecology
DX: Z12.31 Encounter for screening mammogram for malignant neoplasm of breast (principal); R92.8 Other abnormal and inconclusive findings on diagnostic imaging of breast
CPT/HCPCS: 77063; 77067

== ENCOUNTER 2024-09-22 12:49 | Outpatient (CLI) | payer BC, SELFPAY ==
--- NOTE | ~2024-09-22 | MMUS_ITS ---
EXAMINATION: US breast LT limited, MM diagnostic yoav LT w hedy HISTORY: Follow-up left breast asymmetry. TECHNIQUE: Additional 3-D tomosynthesis images of the left breast were performed and synthetic 2-D im ages were generated. CAD analysis was submitted and interpreted. High resolution Limited left breast ultrasound was performed. COMPARISON: No prior studies for comparison. BREAST PARENCHYMAL COMPOSITION: Not dense: There are scattered areas of fibroglandular density. FINDINGS: MAMMOGRAPHIC FINDINGS: There are no suspicious masses, calcifications or architectural distortion breast to suggest malignan cy. ULTRASOUND: Limited left breast ultrasound: At 2:00, 8 cm from the nipple there is a 2 mm cyst. No suspicious mas ses to suggest malignancy. IMPRESSION: 1. No evidence for malignancy in the left breast. Benign finding. 2. Routine yearly screening mammogram and regular clinical breast examination are recommended. BI-RADS Category 2: Benign finding(s). Reviewed, dictated and finalized at location A. IMPRESSION: 1. No evidence for malignancy in the left breast. Benign finding. 2. Routine yearly screening mammogram and regular clinical breast examination a re recommended. BI-RADS Category 2: Benign finding(s).
--- OUTSIDE RECORDS SUMMARY | 2024-09-22 12:53 | XMS_ITS | Encounter Summary ---
Author Organization [facility] Address [address] [place] [address] Care Team Providers Care Jig Worker Name Role Phone Donnell [place] MD Primary Care Provider [phone] Encounter Details Date Type Department Care Team (Latest Contact Info) Description 11/03/2023 Tutor Assignmentt Message [place] [address] [place] [address] [facility] Provider imaging and medication information Social [...] AM CDT Legal Sex Female 2:03 PM SIGNAL TOWER DIRECTOR Gender Identity Female 10/26/2023 7:57 AM CDT Sexual Orientation Straight 10/26/2023 7: 57 AM CDT documented as of this encounter Plan of Treatment Upcoming Encounters Date Type Department Care Team (Late st Contact Info) Description 10/24/2024 7:40 AM CDT Office Visit [address] [place], [place] [id number] Donnell [place] MD [address] [place] [address] [address] [place] [address] documented as of this encounter Visit Diagnoses Not on filedocumented in this encounter Additional Health Concerns Assessment Noted Time PHQ-9 Depression Total Score: 5 10/25/19 24 3:33 PM CDT documented as of this encounter Care Teams Jig Worker Relationship Specialty Start Date End Date Donnell [place] MD [address] [address] PCP - General 10/24/23 documented as of this encounter
--- OUTSIDE RECORDS SUMMARY | 2024-09-22 12:53 | XMS_ITS | Clinical Summary ---
Author Organization [facility] Address [address] [place] [address] Care Team Providers Care Reproduction Production Manager Name Role Phone Donnell Patterson MD Primary Care Provider [phone] Allergies Active Allergy Reactions Criticality Noted Date [...] hyperglycemia, with long-term current use of insulin ([facility]/HCC HHS/HCC) Take 1 tablet (500 mg total) [...] hyperglycemia, with long-term current use of insulin ([facility]) TAKE 1 TABLET BY MOUTH EVERY DAY FOR DIABETES 30 tablet 2 5 Active Active Problems Problem Noted Date Diagnosed Date Hx laparoscopic cholecystectomy 10/25/2023 Previous section 10/25/2023 Anxiety Encounters Date Type Department Care Team Description 07/18/2024 Telephone [facility] - [address] [place] [address] Donnell Patterson MD Other from Last 3 [...] AM CDT Legal Sex Female 2:03 PM SADDLE LINING STITCHER Gender Identity Female 10/26/2023 7:57 AM CDT Sexual Orientation Straight 10/26/2023 7: 57 AM CDT Last Filed Vital Signs Vital Sign Reading Time Taken Comments Blood Pressure 123/75 04/28/2024 12:38 PM SADDLE LINING STITCHER Pulse 69 04/28/2024 12:38 PM SADDLE LINING STITCHER Temperature 36.3 C (97.3 F) 04/28/2024 12:38 PM SADDLE LINING STITCHER Respiratory Rate 18 04/28/2024 12:38 PM SADDLE LINING STITCHER Oxygen Saturation 99% 04/28/2024 12:38 PM SADDLE LINING STITCHER Inhaled Oxygen Concentration - - Weight 96.7 kg (213 lb 3.2 oz) 04/28/2024 12:38 PM SADDLE LINING STITCHER Height 170.2 cm (5' 7 ) 04/28/2024 12:38 PM SADDLE LINING STITCHER Body Mass Index 33.39 04/28/2024 12:38 PM SADDLE LINING STITCHER Plan of Treatment Upcoming Encounters Date Type Department Care Team (Late st Contact Info) Description 10/24/2024 7:40 AM CDT Office Visit [facility] [place] [address] [place] [address] [address] [place], [place] [id number] Donnell Patterson MD [address] [facility] [address] [place], [place] [phone] Health Maintenance Due Date Last Done Comments Cervical Cancer Screening Pap Smear (Age 30 to 64) Every 3 Years 1970 Diabetes: Retinopathy Eye Exam 1988 Hepatitis B Vaccines (1 of 3 - 19+ 3-dose series) 1989 Mammogram Screening 12/11/2023 12/10/2021, COVID-19 Vaccine ( season) 2024 04/04/2023, 04/30/2022, 09/26/2021, Additional history exists PHQ-2 (Physician [place]) 06/21/2024 10/25/2023 Hemoglobin A1C 09/26/2024 03/28/2024, 11/01/2023 [...] Completed 12/20/2021, 10/04/2021 Hepatitis C Completed 11/01/2023 Pneumococcal Vaccine: Pediatrics (0 to 5 Years) and At-Risk Patients (6 to 64 Years) Completed 04/28/2024 Meningococcal B Vaccine Aged Out No l onger eligible based on patient's age to complete this topic Meningococcal Vaccine Aged Out No ara deidra eligible based on patient's age to complete this topic RSV Immunizations Under 20 Months Aged Out No longer eligible based on patient's age to complete this topic Procedures Procedure Name Priority Date/Time Associated Diagnosis Comments LIPID PANEL Routine 05/29/2024 7:32 AM SADDLE LINING STITCHER Drug therapy HEMOGLOBIN, GLYCOSYLATED Routine 03/28/2024 7:59 AM CDT Type 2 diabetes mellitus with hyperglycemia, with long-term current use of insulin ([facility]) COLOGUARD (EXACT SCIENCE) Routine 01/21/2024 1:00 [...] * (ABNORMAL) LIPID PANEL (05/29/2024 7:32 AM SADDLE LINING STITCHER) CHOLESTEROL 133 <200 MG/DL 05/29/2024 3:10 PM SADDLE LINING STITCHER [facility] TRIGLY[place]ERIDES 145 <150 MG/DL 05/29/2024 3:10 PM SADDLE LINING STITCHER [facility] HDL 37(L) >40 MG/DL 05/29/2024 3:10 PM SADDLE LINING STITCHER [facility] LDL-C 67 <100 MG/DL 05/29/2024 3:10 PM SADDLE LINING STITCHER [facility] VLDL CALCULATION 29(H) 5 - 28 MG/DL 05/29/2024 3:10 PM SADDLE LINING STITCHER [facility] CHOL/HDL RATIO 3.6 0.0 - 4.0 05/29/2024 3:10 PM SADDLE LINING STITCHER [facility] LDL/HDL 1.8 0.41 - 2.13 05/29/2024 3:10 PM SADDLE LINING STITCHER [facility] NON HDL CHOLESTEROL 96 <140 MG/DL 05/29/2024 3:10 PM SADDLE LINING STITCHER [facility] 05/29/2024 7:32 AM SADDLE LINING STITCHER Donnell Patterson MD LABORATORY Final Result Performing Organization Address [facility] Co de Phone Number [address] [address], * HEMOGLOBIN, GLYCOSYLATED (03/28/2024 7:59 AM CDT) HGB A1C 5.0 4.5 - 6.2 % 03/28/2024 3:09 PM CDT [facility] ESTIMATED AVG GLUCOSE 97 74 - 106 MG/DL 03/28/2024 3:09 PM CDT [facility] 03/28/2024 7:59 AM CDT Erica Pa NP LABORATORY Final Resul t Performing Organization Address [facility]/ZIP Co de Phone Number [address] [address], * COLOGUARD (EXACT SCIENCE) (01/21/2024 1:00 PM CDT) COLOGUARD RESULT Negative Negative [employer] (CLIA #:[id number]) Comment: NEGATIVE TEST RESULT. A negative Cologuard [...] Hernandes et al, N Engl J Med 2014;370(14):1055-2909) The normal value (reference range) for this assay is negative. COLOGUARD RE-SCREENING RECOMMENDATION: Periodic colorectal cancer screening is an important part of preventive healthcare for asymptomatic individuals at average risk for colorectal cancer. Following a negative Cologuard result, the [place] Cancer Society and U.S. Multi-Society Task Force screening guidelines recommend a Cologuard re-screening interval of 3 years. References: [place] [employer] Guideline for Colorectal Cancer Screening: https://www.cancer.org/cancer/dysze-osrkib-gzssvj/ndciryhlf-ctewxnnpj-bpglaxr/ac s-rec ommendations.html.; Percy DK, Naina TREVINO, Gabino GlezK, Colorectal Cancer Screening: Recommendations for Physicians and Patients from the U.S. Multi-Society Task Force on Colorectal Cancer Screening , Am J Gastroenterology 2017; 112:2055-6359. TEST DESCRIPTION: Composite algorithmic analysis of stool [...] screened with both Cologuard and colonoscopy. (Adriel Peters al, N Engl J Med 2014;370(14):8023-7962.) Cologuard may produce a false negative or false positive result (no colorectal cancer or precancerous polyp present at colonoscopy follow up). A negative Cologuard test result does not guarantee the absence of CRC or advanced adenoma (pre-cancer). The current Cologuard screening interval is every 3 years. ([place] Cancer Society and U.S. Multi-Society Task Force). Cologuard performance data in a 10,000 patient pivotal study using colonoscopy as the reference method can be accessed at the following location: www.[employer]/results. Additional description of the Cologuard test process, warnings and precautions can be found at www.cologuard.com. STOOL STOOL SPECIMEN / Unknown 01/21/2024 1:00 PM CDT 01/22/2024 6:24 AM CDT us Donnell Patterson MD BODY FLUIDS AND STOOLS ORDERABLE S Final Result [employer] ([facility]) [address] [place] [address], [employer] (CLIA #:[id number]) [address] [place] [address] * HEPATITIS C ANTIBODY (11/01/2023 7:36 AM CDT) HEPATITIS C AB NON-REACTI VE NON-REACT TAMIKA 11/01/2023 8:27 PM CDT [facility] Comment: ANTIBODIES TO HCV NOT DETECTED. DOES NOT EXCLUDE THE POSSIBILITY OF EXPOSURE TO HCV. 11/01/2023 7:36 AM CDT us Donnell Patterson MD LABORATORY Final Result [facility] [address] [place] [address], [id number] * MG SCREENING W THO CHAVEZ (12/10/2021 12:00 AM CDT) Anatomical Region Laterality Modality Breast Bilateral Mammography 12/10/2021 Donnell Patterson MD MAMMO Final Result * PAP SMEAR WITH HPV (09/09/2021) 09/09/2021 [facility] Scanned SCANNING Final Resu lt from Last 3 Months or Most Recently Relevant to Health Maintenance Insurance [facility] Care Teams Reproduction Production Manager Relationship Specialty Start Date End Date Donnell Patterson MD [address] [facility] [address] [place] [address] PCP - General 10/24/23
--- OUTSIDE RECORDS SUMMARY | 2024-09-22 12:53 | XMS_ITS | Encounter Summary ---
Author Organization [facility] Address [address] [place] [address] Care Team Providers Care Control Supervisor Name Role Phone Unavailable Primary Care Provider Unavailabl e Prior Encounters Date Type Department Care Team Description 03/05/2022 3:00 PM CDT Office Visit [facility] [address] [place] [address] Yandel Yuen DDS 05/27/2021 Travel 05/27/2021 5:30 PM SENIOR GIS ANALYST Office Visit [facility] [address] [place] [phone] Trisha Shields, RIANA 07/10/2019 Converted CPS Chart Documents [facility] [address] [place] [phone] <No scans attached> 07/10/2019 Converted 13x Documents [facility] [address] [place] [phone] <No scans attached> Plan of Treatment Not on file Procedures Procedure Name Priority Date/Time Associated Diagnosis Comments SINGLE X-RAY Routine 03/05/2022 3:00 PM CDT BITEWING - SINGLE RADIOGRAPHIC IMAGE Routine 03/05/2022 3:00 PM CDT PLAN VISIT FEE Routine 03/05/2022 3:00 PM CDT LIMITED ORAL EVALUATION - PROBLEM FOCUSED Routine 03/05/2022 3:00 PM CDT BITEWINGS - FOUR RADIOGRAPHIC IMAGES Routine 05/27/2021 5:30 PM SENIOR GIS ANALYST SINGLE X-RAY Routine 05/27/2021 5:30 PM SENIOR GIS ANALYST PERIODIC ORAL EVALUATION - ESTABLISHED PATIENT Routine 05/27/2021 5:30 PM SENIOR GIS ANALYST 4 MOD COMPOSITE FILLING Routine 10/23/19 21 [...] CDT Visit Diagnoses Not on file [facility]
--- OUTSIDE RECORDS SUMMARY | 2024-09-22 12:53 | XMS_ITS | Encounter Summary ---
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 Gender Identity Female 10/26/2023 7:57 AM CDT Sexual Orientation Straight 10/26/2023 7: 57 AM CDT documented as of this encounter Plan of Treatment Upcoming Encounters Date Type Department Care Team (Late st Contact Info) Description 10/24/2024 7:40 AM CDT Office Visit [address] [place] [address] Donnell Patterson MD [address] [address] documented as of this encounter Visit Diagnoses Not on filedocumented in this encounter Additional Health Concerns Assessment Noted Time PHQ-9 Depression Total Score: 5 10/25/19 24 3:33 PM CDT documented as of this encounter Care Teams Storage And Backup Administrator Relationship Specialty Start Date End Date Donnell Patterson MD [address] [address] PCP - General 10/24/23 documented as of this encounter
--- OUTSIDE RECORDS SUMMARY | 2024-09-22 12:53 | XMS_ITS | Clinical Summary ---
Author Organization [facility] Address [address] [place] [address] Care Team Providers Care Automatic Spreader Operator Name Role Phone Unavailable Primary Care [...] - ESTABLISHED PATIENT Routine 05/27/2021 5:30 PM AUDIT LEAD LL PERIODONTAL SCALING AND ROOT PLANING - ONE TO THREE TEETH PER QUADRANT Routine 03/22/2020 2:00 AM CDT INTRAORAL - COMPREHENSIVE SERIES OF RADIOGRAPHIC IMAGES Routine 03/22/2020 2:00 AM CDT PANORAMIC RADIOGRAPHIC IMAGE Routine 02/12/2020 2:00 AM CDT from Last 3 Months or Most Recently Relevant to Health Maintenance Insurance [facility] HMO
--- OUTSIDE RECORDS SUMMARY | 2024-09-22 12:53 | XMS_ITS | Encounter Summary ---
Author Organization [facility] Address [address] [place] [address] Care Team Providers Care Voice Engineer Name Role Phone Donnell Patterson MD Primary Care Provider [phone] Encounter Details Date Type Department Care Team (Late st Contact Info) Description 10/28/2023 [employer] Message Enc [address] [place] [address] [facility] Provider urine cx results Social History [...] AM CDT Legal Sex Female 2:03 PM TRANSLATOR/INTERPRETER Gender Identity Female 10/26/2023 7:57 AM CDT Sexual Orientation Straight 10/26/2023 7: 57 AM CDT documented as of this encounter Plan of Treatment Upcoming Encounters Date Type Department Care Team (Late st Contact Info) Description 10/24/2024 7:40 AM CDT Office Visit [address] [place], [place] [phone] Donnell Patterson MD [address] [place] [address] [address] [place] [address] documented as of this encounter Visit Diagnoses Not on filedocumented in this encounter Additional Health Concerns Assessment Noted Time PHQ-9 Depression Total Score: 5 10/25/19 24 3:33 PM CDT documented as of this encounter Care Teams Voice Engineer Relationship Specialty Start Date End Date Donnell Patterson MD [address] [address] PCP - General 10/24/23 documented as of this encounter
--- OUTSIDE RECORDS SUMMARY | 2024-09-22 12:53 | XMS_ITS | Encounter Summary ---
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 THIRD Gender Identity Female 10/26/2023 7:57 AM CDT Sexual Orientation Straight 10/26/2023 7: 57 AM CDT documented as of this encounter Plan of Treatment Upcoming Encounters Date Type Department Care Team (Late st Contact Info) Description 10/24/2024 7:40 AM CDT Office Visit [address] [place] [address] Donnell Patterson MD [address] [address] documented as of this encounter Visit Diagnoses Not on filedocumented in this encounter Additional Health Concerns Assessment Noted Time PHQ-9 Depression Total Score: 5 10/25/19 24 3:33 PM CDT documented as of this encounter Care Teams Warehouse Selector Relationship Specialty Start Date End Date Donnell Patterson MD [address] [address] PCP - General 10/24/23 documented as of this encounter
== END 2024-09-22 12:50 | disposition home or self-care (01) ==
LOC: ANHIMG 12:51
PROVIDERS: PCP Internal Medicine; Visit Provider Obstetrics & Gynecology
DX: R92.8 Other abnormal and inconclusive findings on diagnostic imaging of breast (principal)
CPT/HCPCS: 76642; 77061; 77065; G0279